=== PATIENT | male | born 1950 | race Caucasian/White ===

== ENCOUNTER → 2018-12-04 | Outpatient (CLI) | payer OTHER, MEDICARE ==
--- NOTE | 2018-12-05 03:14 | KCIC ---
3 views right knee dated 12/04/2018. No comparison available. Clinical data indication: Pain for couple of months. FINDINGS: 3 views right knee show normal bony alignment. No displaced fracture. No acute osseous or articular abnormality. No apparent joint effusion or loose body. Minimal tricompartmental hypertrophic changes. IMPRESSION: No acute radiographic abnormality. Electronically signed by: Steve Farias MD (12/05/2018 3:11 AM) [facility]
== END | disposition home or self-care (01) ==
LOC: KCIC 14:48
PROVIDERS: ATTEND Family Medicine
DX: M25.561 Pain in right knee (principal)
CPT/HCPCS: 73562

== ENCOUNTER → 2020-11-27 | Outpatient (CLI) | payer MEDICARE, OTHER ==
--- NOTE | 2020-11-27 17:09 | KCIC ---
PROCEDURE: XR KNEE _3 VIEWS_LT STUDY DATE: 11/27/2020 CLINICAL INDICATION / HISTORY: Reason: LT MEDIAL KNEE PAIN XS 2 WEEKS WALKING UP/DOWN STAIRS, POPPING , NKI / Spl. Instructions: / History: . TECHNIQUE: AP, lateral, and oblique views of the left knee. COMPARISON: None FINDINGS: The osseous structures are intact. The articular surfaces are smooth. The joint space is maintained. No intra-articular loose bodies. The alignment is within normal limits. The soft tiss ues are unremarkable. No obvious joint effusion. No radio-opaque foreign bodies are identified. IMPRESSION: No fracture or dislocation is identified. Electronically signed by: Dillon Nielsen MD (11/27/2020 5:07 PM) [id number]
== END ==
LOC: KCIC 12:22
PROVIDERS: ATTEND Family Medicine
DX: M25.562 Pain in left knee (principal)
CPT/HCPCS: 73562